=== PATIENT | female | born 1975 | race Caucasian/White ===

== ENCOUNTER 2018-01-11 10:07 | Emergency (ER) | payer OTHER ==
[~2018-01-11] VITALS: Ht 149.9 cm; Wt 113.4 kg
--- NOTE | ~2018-01-11 | EKG ---
[address] [address] ELECTROCARDIOGRAM REPORT Name: JESSICA ALFARO [id number] Admission: 01/11/18 Attend Phys: Discharge: 01/11/18 Date of : 71 Report #: [id number] THIS REPORT FOR: //name// [facility] ED Test Date: 2018-01-11 Test Time: 10:54:54 Pat Name: JESSICA ALFARO Department: Room: Gender: F [employer]claimer: KENYETTA : 1975 Requested By: Kena Graves Order Number: [id number] MD: Vini De La Vega Measurements Intervals Victor Rate: 72 P: 75 WV: 170 QRS: 52 QRSD: 93 T: 41 QT: 401 QTc: 439 Interpretive Statements Sinus rhythm Normal tracing No previous ECG available for comparison Electronically Signed On 01-12-2018 8:27:11 CDT by Vini De La Vega [email or web address] <ELECTRONICALLY SIGNED> By: Vini De La Vega MD, [facility] 01/12/18 0827 1054 1054 Vini De La Vega MD, FACC /EPI
[~2018-01-11 10:07] MED LIST: ADDERALL 10 MG10 MG PO; AMBIEN 5 MG TABL5 M1 PO; APAP W/CODEINE1 TA2 PO; BACTRIM DS TAB1 EACH PO; BENADRYL25 MG PO; BENTYL 10 MG CA10 MG PO; CARAFATE 1 GM TA1 G1 PO; COLESTIPOL HCL1 G1 PO; CREON 10 CAPSUL1 CA1 PER TUBE; CREON DR 36,001 EACH PO; DIFLUCAN150 MG PO; EFFEXOR XR75 MG PO; FLAGYL500 MG PO; FLEXERIL PO; HYDROCODON-ACE1 EAC7 PO; HYDROCODONE-AP1 EAC6 PO; HYDROXYCHLOROQ200 M1 PO; IBUPROFEN 800800 M1 PO; IBUPROFEN 800800 MG PO; KEFLEX500 MG PO; MACROBID 100 M100 M2 PO; MEDROLDOSEPACK PO; NEURONTIN 300300 M1 PO; NEURONTIN 400M400 M2 PO; NEXIUM40 MG PO; NORCO 5-325 TA1 EAC1 PO; NORCO 5-325 TA1 EACH PO; NORFLEX100 MG PO; ONDANSETRON HCL4 M2 PO; OXYBUTYNIN 5 MG5 M2 PO; PANTOPRAZOLE SO40 M1 PO; PHENERGAN 25 MG25 M1 PO; PREDNISONE 10 M10 M1 PO; PRILOSEC2.5 MG PO; PROMS25 WY RECTAL; REGLAN 10 MG TA10 MG PO; REQUIP XL4 MG PO; RESTORIL7.5 MG PO; ROBAXIN500 MG PO; SEROQUEL 25 MG25 M1 PO; SILVADENE20 GM TP; SULFAZINE EC500 MG PO; TRAMADOL 50 MG50 MG; VALIUM2 MG PO; XANAX 0.25 MG0.25 MG PO; XANAX 0.5 MG0.5 MG PO; ZANTAC 150MG T150 MG PO
[2018-01-11] MEDS ORDERED: XANAX1 MG PO (10:34)
[2018-01-11] MEDS ORDERED: PHENERGAN 25 MG25 M1 PO (10:36)
[2018-01-11] MEDS ORDERED: SEROQUEL 50 MG50 MG PO (10:37)
[2018-01-11] MEDS ORDERED: BENTYL 10 MG CA10 M1 PO (10:38)
[2018-01-11 10:52] LABS: BASOPHILS 0.7 % (0.0-2.0); EOSINOPHILS 0.9 % (0.0-3.0); HEMATOCRIT 38.7 % (37.0-47.0); HEMOGLOBIN 12.7 gm/dL (12.0-15.0); LYMPHOCYTES 24.6 % (24.0-44.0); MCH 30.9 pg (26.0-34.0); MCHC 32.9 g/dL (28.0-37.0); MONOCYTES 6.7 % (1.0-8.0); PLATELET COUNT 236 thou/uL (150-400); POLYS 67.1 % (36.0-66.0); RBC 4.11 mil/uL (4.20-5.00); RDW 13.8 % (10.5-14.5); WBC 7.5 thou/uL (4.0-11.0)
[2018-01-11 11:12] LABS: CALCIUM 8.8 mg/dL (8.5-10.1); CREATININE 0.8 mg/dL (0.6-1.0); MAGNESIUM 1.6 mg/dL (1.8-2.4); POTASSIUM 4.2 mmol/L (3.5-5.1)
[2018-01-11] MEDS ORDERED: NORCO 5-325 TA1 EACH PO (12:21)
[2018-01-11 12:44] VITALS: BP 125/59
== END 2018-01-11 12:45 | disposition home or self-care (01) ==
LOC: ER 10:07
PROVIDERS: Emergency Medicine
DX: R06.00 Dyspnea, unspecified (principal); R60.9 Edema, unspecified; R20.2 Paresthesia of skin; K21.9 Gastro-esophageal reflux disease without esophagitis; F41.9 Anxiety disorder, unspecified; M19.90 Unspecified osteoarthritis, unspecified site; J44.9 Chronic obstructive pulmonary disease, unspecified; Z88.8 Allergy status to other drugs, medicaments and biological substances